=== PATIENT | male | born 1985 | race African-American/Black ===

== ENCOUNTER 2019-03-14 13:20 | Emergency (ER) | payer OTHER ==
[~2019-03-14] VITALS: Ht 177.8 cm; Wt 86.2 kg
[2019-03-14 13:48] VITALS: BP 126/77
[2019-03-14] MEDS ORDERED: traMADol HCL 50 MG TAB PO ONE (14:00)
== END 2019-03-14 14:21 | disposition home or self-care (01) ==
LOC: EDBD 13:20 → ER 13:20
DX: M79.605 Pain in left leg (principal); M79.604 Pain in right leg

== ENCOUNTER 2019-03-16 12:49 | Emergency (ER) | payer OTHER ==
[~2019-03-16] VITALS: Ht 180.3 cm; Wt 81.6 kg
[2019-03-16 14:01] VITALS: BP 125/72
[2019-03-16 14:33] LABS: Alcohol, Urine < 3.0 mg/dL (0-5); Amphetamine Screen, Urine NEGATIVE (NEGATIVE); Barbiturate Scree,Urine NEGATIVE (NEGATIVE); Benzodiazephine Screen, Urine NEGATIVE (NEGATIVE); Cannabinoid Screen, Urine POSITIVE (NEGATIVE); Cocaine Screen, Urine NEGATIVE (NEGATIVE); Opiate Scree,Urine NEGATIVE (NEGATIVE); Phencyclidine Screen, Urine NEGATIVE (NEGATIVE)
== END 2019-03-16 18:59 | disposition left against medical advice (07) ==
LOC: ER 12:54
DX: F41.9 Anxiety disorder, unspecified (principal); Z53.21 Procedure and treatment not carried out due to patient leaving prior to being seen by health care provider
CPT/HCPCS: 80307